=== PATIENT | female | born 1965 | race Caucasian/White ===

== ENCOUNTER → 2018-09-25 | Outpatient (CLI) | payer BC ==
--- NOTE | 2018-09-25 10:40 | RAD ---
DATE: 09/25/2018 EXAM: MAMMO EVARISTO SCREENING BILATERAL HISTORY: Routine screening COMPARISON: 11/05/2013 This study was interpreted with the benefit of Computerized Aided Detection (CAD). Breast Density: SCATTERED The breast parenchyma shows scattered fibroglandular densities. Breast parenchyma level B. FINDINGS: 2-D and 3-D tomosynthesis imaging was performed in CC and MLO projections. There are unchanged smooth benign-appearing nodules in the lateral aspects of both breasts, probably representing intramammary lymph nodes. No spiculated mass or architectural distortion is evident. Minimal benign type calcifications present. No suspicious microcalcifications have developed. IMPRESSION: Stable mammograms without evidence of malignancy. BI-RADS CATEGORY: 2 BENIGN FINDING(S) RECOMMENDED FOLLOW-UP: 12M 12 MONTH FOLLOW-UP PQRS compliance statement: Patient information was entered into a reminder system with a target due date for the next mammogram. Mammography is a sensitive method for finding small breast cancers, but it does not detect them all and is not a substitute for careful clinical examination. A negative mammogram does not negate a clinically suspicious finding and should not result in delay in biopsying a clinically suspicious abnormality. "Our facility is accredited by the [employer] Mammography Program."
== END | disposition home or self-care (01) ==
LOC: MAMMO 08:42
PROVIDERS: ATTEND Family Medicine
DX: Z12.31 Encounter for screening mammogram for malignant neoplasm of breast (principal); N64.89 Other specified disorders of breast
CPT/HCPCS: 77063; 77067

== ENCOUNTER → 2018-12-02 | Outpatient (CLI) | payer BC ==
--- NOTE | 2018-12-02 12:45 | KCIC ---
EXAM: Pelvis, single view; bilateral hips, single view. HISTORY: Pain. COMPARISON: None. FINDINGS: A frontal view of the pelvis and frog-leg views of both hips are obtained. There is no fracture, dislocation or subluxation. The femoral heads are normal in configuration. There is a suspected tiny right os acetabulum or tiny chronic fragment at superior acetabular osteophyte. IMPRESSION: No acute osseous finding. Electronically signed by: Rut Veronica MD (12/02/2018 12:42 PM) [place] [id number]
--- NOTE | 2018-12-02 13:34 | KCIC ---
LUMBAR SPINE WO CONTRAST History: Lumbar spondylosis. Chronic back pain. Bilateral leg pain. Technique: Multiplanar, multi sequential MR imaging was performed of the lumbar spine. Comparison: None Findings: Normal vertebral body height and alignment. No fracture. Conus terminates at the normal location. No evidence of nerve root clumping. L1-L2: No canal or neuroforaminal narrowing. L2-L3: Disc height loss. Mild facet arthropathy. No canal or neuroforaminal narrowing. L3-L4: Disc height loss. Minimal posterior disc bulge. Mild facet arthropathy. No canal or neuroforaminal narrowing. L4-L5: Disc height loss. Small posterior disc bulge. Moderate facet arthropathy. No canal or neuroforaminal narrowing. L5-S1: Disc height loss. Broad-based disc bulge with superimposed central disc protrusion. Moderate facet arthropathy. No canal narrowing. No neuroforaminal narrowing. Impression: 1. Mild multilevel lumbar spondylosis most prominent L4-L5 and L5-S1. No significant canal or neuroforaminal narrowing. Electronically signed by: Raman Marshall DO (12/02/2018 1:31 PM) [id number]
== END | disposition home or self-care (01) ==
LOC: KCIC MRI 10:53
PROVIDERS: ATTEND Nurse Practitioner Gerontology
DX: M51.27 Other intervertebral disc displacement, lumbosacral region (principal); M47.817 Spondylosis without myelopathy or radiculopathy, lumbosacral region; M46.87 Other specified inflammatory spondylopathies, lumbosacral region; G89.29 Other chronic pain; M25.551 Pain in right hip; M25.552 Pain in left hip
CPT/HCPCS: 72148; 72170; 73501